=== PATIENT | female | born 1985 | race Two or more races ===

== ENCOUNTER 2020-09-27 09:24 | Emergency (ER) | payer BC ==
[~2020-09-27] VITALS: Ht 160 cm; Wt 49.9 kg
[2020-09-27] MEDS ORDERED: TRAMADOL HCL300 M1 (09:36)
[2020-09-27] MEDS ORDERED: AMOXICILLIN (09:37)
== END 2020-09-27 12:51 | disposition home or self-care (01) ==
LOC: ER 09:24
DX: N75.1 Abscess of Bartholin's gland (principal)